=== PATIENT | female | born 1955 ===

== ENCOUNTER 2021-10-12 20:27 | Inpatient (IN) | payer MEDICARE, OTHER ==
[~2021-10-12] VITALS: Ht 160 cm; Wt 66.7 kg
[2021-10-12] MEDS ORDERED: HYDROMORPHONE 1 MG/1 ML DISP.SYRIN IV ONE ×2 (20:45→22:15)
[2021-10-12] MEDS ORDERED: NITROGLYCERIN OINT 1 GM PACKET TP ONE ×3 (20:45→21:11)
[2021-10-12] MEDS ORDERED: ONDANSETRON 4 MG/2 ML VIAL IV ONE (20:45)
[2021-10-12] MEDS ORDERED: ENOXAPARIN SODIUM 30 MG/0.3 ML DISP.SYRIN SUBCUT ONE (20:45)
[2021-10-12] MEDS ORDERED: METOPROLOL TARTRATE 50 MG TABLET PO ONE (20:45)
[2021-10-12] MEDS ORDERED: METOPROLOL TARTRATE 5 MG/5 ML VIAL IVP ONE ×2 (20:45→20:50)
[2021-10-12] MEDS ORDERED: MAGNESIUM SULFATE 2 GM in IV DEXTROSE 5% 100 ML IV ONE (20:45)
[2021-10-12] MEDS ORDERED: ONDANSETRON 4 MG/2 ML VIAL ONE (20:49)
[2021-10-12] MEDS ORDERED: MAGNESIUM SULFATE/D5W 200 ML ONE (20:50)
[2021-10-12] MEDS ORDERED: HYDROMORPHONE 1 MG/1 ML DISP.SYRIN ONE ×2 (20:51→22:19)
[2021-10-12] MEDS ORDERED: METOPROLOL TARTRATE 50 MG TABLET ONE (20:51)
[2021-10-12] MEDS ORDERED: ENOXAPARIN SODIUM 80 MG/0.8 ML DISP.SYRIN SQ ONE (20:52)
[2021-10-12 21:04] LABS: HEMATOCRIT 38.7 % (31.2-41.9); MEAN CORPUSCULAR HEMOGLOBIN 28.7 uug (24.7-32.8); MEAN CORPUSCULAR VOLUME 85.1 fL (75.5-95.3); PLATELET COUNT (AUTO) 288 K/uL (179-408)
--- NOTE | 2021-10-12 21:08 | NUR ---
Xray at bedside
[2021-10-12 21:12] LABS: CARBON DIOXIDE 25 mmol/L (21-32); CHLORIDE 105 mmol/L (98-107); CREATININE 0.9 mg/dL (0.6-1.3); GLUCOSE 135 mg/dL (74-106); POTASSIUM 3.9 mmol/L (3.5-5.1); UREA NITROGEN, BLOOD 22 mg/dL (7-18)
[2021-10-12 21:21] LABS: ALANINE AMINOTRANSFERASE 39 U/L (14-59); ALKALINE PHOSPHATASE 76 U/L (50-136); ASPARTATE AMINOTRANSFERASE 15 U/L (15-37); BILIRUBIN,DIRECT 0.1 mg/dL (0.0-0.2); BILIRUBIN,TOTAL 0.3 mg/dL (0.2-1.0); TOTAL PROTEIN, SERUM 7.7 g/dL (6.4-8.2)
--- NOTE | 2021-10-13 01:01 | NUR ---
report given to Rut [facility]IA Tele.
[2021-10-13] MEDS ORDERED: METF-442 PO (01:10)
[2021-10-13] MEDS ORDERED: EMPA25TA PO (01:10)
[2021-10-13] MEDS ORDERED: ASPI81TA31 PO (01:10)
[2021-10-13] MEDS ORDERED: ATOR80TA PO (01:10)
[2021-10-13] MEDS ORDERED: FAMO10TA41 PO (01:10)
[2021-10-13] MEDS ORDERED: METO25TA6 PO (01:10)
[2021-10-13] MEDS ORDERED: RAMI2.5C55 PO (01:10)
[2021-10-13] MEDS ORDERED: isosorbide PO (01:10)
--- NOTE | 2021-10-13 01:30 | NUR ---
[facility].
[2021-10-13] MEDS ORDERED: NITROGLYCERIN 0.4 MG/TAB BOTTLE SL PRN (02:00)
[2021-10-13] MEDS ORDERED: HYDROCODONE/APAP 5-325MG TABLET PO PRN (02:00)
[2021-10-13] MEDS ORDERED: ACETAMINOPHEN 325 MG TABLET PO PRN (02:00)
[2021-10-13] MEDS ORDERED: ONDANSETRON 4 MG/2 ML VIAL IV PRN (02:00)
--- NOTE | 2021-10-13 02:00 | NUR ---
66 yr old Female admitted to Tele unit from [facility] via [facility] Dx of chest pain. Patient AALOx4.Denies chest pain at this time.On Ra. No s/s of distress noted. Ambulates to bathroom with assist c/o feeling dizzy. Assisted patient back to bed. Vomited x1. Zofran IVP given with good effect. Iv patent and intact on left Ac. Safety measures in place. Call light with in reach.Will continue to monitor.
[2021-10-13 02:15] VITALS: BP 112/55
[2021-10-13 04:00] VITALS: BP 101/44
[2021-10-13 06:29] LABS: HEMATOCRIT 37.2 % (31.2-41.9); MEAN CORPUSCULAR HEMOGLOBIN 29.1 uug (24.7-32.8); MEAN CORPUSCULAR VOLUME 85.2 fL (75.5-95.3); PLATELET COUNT (AUTO) 273 K/uL (179-408)
[2021-10-13] MEDS ORDERED: PANTOPRAZOLE SODIUM 40 MG TABLET.DR PO SCH (07:00)
[2021-10-13 07:32] LABS: ALANINE AMINOTRANSFERASE 44 U/L (14-59); ALKALINE PHOSPHATASE 62 U/L (50-136); ASPARTATE AMINOTRANSFERASE 21 U/L (15-37); BILIRUBIN,TOTAL 0.5 mg/dL (0.2-1.0); CARBON DIOXIDE 27 mmol/L (21-32); CHLORIDE 103 mmol/L (98-107); CHOLESTEROL 271 mg/dL (<200); CREATININE 0.9 mg/dL (0.6-1.3); GLUCOSE 135 mg/dL (74-106); HDL CHOLESTEROL 43 mg/dL (40-60); MAGNESIUM 2.7 mg/dL (1.8-2.4); PHOSPHOROUS 3.7 mg/dL (2.5-4.9); TOTAL PROTEIN, SERUM 7.4 g/dL (6.4-8.2); TRIGLYCERIDES 179 MG/DL (30-150); UREA NITROGEN, BLOOD 20 mg/dL (7-18)
[2021-10-13 08:00] VITALS: BP 132/48
--- NOTE | 2021-10-13 08:00 | NUR ---
AWAKE ALERT AND ORIENTED X3, DENIES PAIN OR SOB RA SATURATING 99% SR ON MONITOR
[2021-10-13] MEDS: ENOXAPARIN SODIUM 60 MG/0.6 ML DISP.SYRIN SQ SCH ×2 (08:34→20:38)
[2021-10-13] MEDS: METOPROLOL TARTRATE 25 MG TABLET PO SCH ×2 (08:34→20:42)
[2021-10-13] MEDS ORDERED: ASPIRIN 81 MG TAB.CHEW PO SCH (09:00)
[2021-10-13] MEDS ORDERED: ASPIRIN 325 MG TABLET PO SCH ×2 (09:00)
--- NOTE | 2021-10-13 09:30 | NUR ---
SEEN BY MACHINE TANK OPERATOR WITH ORDER FOR TRANSFER TO [facility] FOR CTA CHEST. NITRIC ACID PLANT OPERATOR MADE AWARE.
--- NOTE | 2021-10-13 11:30 | NUR ---
DIRECTOR OF ACQUISITION MARKETING NOTIFIED ABOUT PATIENT NOT BEING ABLE TO TRANSFER TO [facility] FOR CTA DUE TO INSURANCE REASON. NO FURTHER ORDERS
[2021-10-13] MEDS ORDERED: NITR0.4T48 SL (13:05)
--- NOTE | 2021-10-13 15:12 | NUR ---
STILL AWAITING FOR TRANSFER TO [facility] FOR HIGHER LEVEL OF CARE
[2021-10-13 16:00] VITALS: BP 113/46
--- NOTE | 2021-10-13 19:30 | NUR ---
RECEIVED REPORT THAT PATIENT IS TO BE TRANSFERRED TO [facility] VIA AMBULANCE [facility]. NOTIFIED THAT [facility] TRANSPORT IS UNAVAILABLE. RECEIVED OK FROM DIMITRI BORRERO NP AND DR. SANCHES CARDIO MD FOR PATIENT TO BE TRANSFERRED VIA "[facility]" TRANSPORT. DAYSHIFT TINSMITH HELPER AWARE. CALLED OUT TO DAHLIA GENAO FOR [facility] TO NOTIFY THAT PATIENT IS CLEARED TO BE TRANSFERRED BY BLS. CM WILL CALL BACK WITH PATIENTS ETA. PATIENT IN ROOM WITH DAUGHTER VERBALIZED UNDERSTANDING OF DISCHARGE AND TRANSPORT.
--- NOTE | 2021-10-13 20:14 | NUR ---
PATIENT AWAKE IN ROOM ,WITH DAUGHTER AT BEDSIDE. WAITING FOR CALL BACK FROM [facility] FOR AMBULANCE PICK-UP. PATIENT IS A/O X4. DENIES ANY CHEST PAIN OR DISCOMFORT. NO RESP. DISTRESS NOTED. VSS. ON TELE SR. HEPLOCK NOTED TO LEFT AC #20 GAUGE, INTACT AND PATENT. CALL LIGHT IN REACH. ALL NEEDS ATTENDED. WILL CONTINUE TO MONITOR AND ASSESS.
--- NOTE | 2021-10-13 20:31 | NUR ---
RECEIVED CALL FROM DAHLIA STEPHEN FOR [facility]. AMBULANCE CLASSIFIER TENDER TIME WILL BE 0100AM. PATIENT IS AWAKE AND VERBALIZED UNDERSTANDING. CALL LIGHT IN REACH. ALL NEEDS ATTENDED. WILL CONTINUE TO MONITOR AND ASSESS.
[2021-10-13 20:42] VITALS: BP 102/51
[2021-10-13] MEDS ORDERED: ENOXAPARIN SODIUM 60 MG/0.6 ML DISP.SYRIN SQ SCH (21:00)
[2021-10-13] MEDS ORDERED: ATORVASTATIN 40 MG TABLET PO SCH (21:00)
--- NOTE | 2021-10-13 23:57 | NUR ---
AMBULANCE TRANSPORT HERE TO [facility] MONITOR PATIENT. CALLED [facility] TO GIVE REPORT. SPOKE WITH CROW FRANCOIS FOR REPORT. VS WNL. PATIENT DENIES ANY CHEST PAIN OR DISCOMFORT. PATIENT LEFT FACILITY IN STABLE CONDITION. ALL NEEDS ATTENDED.
== END 2021-10-13 23:58 | disposition short-term general hospital (02) | DRG 311 ==
LOC: ER 20:39 → TELE3 23:45
PROVIDERS: ADMIT Registered Nurse; ATTEND Registered Nurse
DX: I24.9 Acute ischemic heart disease, unspecified (principal); E11.9 Type 2 diabetes mellitus without complications; E78.5 Hyperlipidemia, unspecified; I10 Essential (primary) hypertension; I25.10 Atherosclerotic heart disease of native coronary artery without angina pectoris; I25.2 Old myocardial infarction; Z95.5 Presence of coronary angioplasty implant and graft; Z79.84 Long term (current) use of oral hypoglycemic drugs; Z20.822 Contact with and (suspected) exposure to COVID-19
CPT/HCPCS: 36415; 71045; 83735; 84100; 84443; 84484; 85025; 93005; G0378; J1170; J1650; J2405; J3475; J3490